=== PATIENT | male | born 1950 | race Caucasian/White ===

== ENCOUNTER 2024-10-23 08:49 | Outpatient (CLI) | payer OTHER, MEDICAID ==
[2024-10-23] MEDS ORDERED: Iopamidol 370 76% 100 ML VIAL ONE (14:05)
== END 2024-10-23 08:50 | disposition home or self-care (01) ==
LOC: BURCT 08:49
PROVIDERS: ATTEND Nurse Practitioner Family
DX: R10.9 Unspecified abdominal pain (principal); K86.2 Cyst of pancreas
CPT/HCPCS: 74177; Q9967

== ENCOUNTER 2024-12-04 10:52 | Emergency (ER) | payer OTHER, MEDICAID ==
[2024-12-04] MEDS ORDERED: Acetaminophen 500 MG TAB ONE (11:18)
== END 2024-12-04 12:27 | disposition home or self-care (01) ==
LOC: BURERS 10:52
DX: M54.50 Low back pain, unspecified (principal); I10 Essential (primary) hypertension; E11.9 Type 2 diabetes mellitus without complications; I25.2 Old myocardial infarction; I25.10 Atherosclerotic heart disease of native coronary artery without angina pectoris; Z79.84 Long term (current) use of oral hypoglycemic drugs; Z79.899 Other long term (current) drug therapy; Z79.82 Long term (current) use of aspirin
CPT/HCPCS: 96374; J2270